=== PATIENT | female | born 1990 | race Caucasian/White ===

== ENCOUNTER 2017-10-03 23:27 | Emergency (ER) | payer OTHER ==
[2017-10-03 23:32] VITALS: BP 132/87; PULSE 75; TEMP 98.7; BMI 18.3
--- NOTE | 2017-10-03 23:53 | PDOC ---
History of Present Illness - General Chief Complaint: Chest Pain Stated Complaint: CHEST PAIN SINCE JUNE Time Seen by Provider: 10/03/17 23:32 - History of Present Illness Initial Comments: This 27-year-old woman with no significant past medical history presents with a few month history of substernal chest discomfort/pressure. In the last several days, the patient describes pain as becoming worse, with patient afraid that she has a life-threatening illness. Pain is worse while she is lying down, especially at night. There is no change the pain with movement of her arms . She has no cough/wheezing/shortness of breath. She denies injury or overuse of upper body muscles. She denies history of GERD or gastritis. Patient describes 10 year history of intermittent cigarette smoking (up to 6 cigarettes per day on some days and no smoking at all on others). She stopped smoking approximately a month ago because of her chest pain. CAD risk factors: Positive smoking; negative family history/HTN/DM/ hyperlipidemia/obesity Thromboembolic disease risk factors: Positive smoking; negative for estrogen use /recent immobility/malignancy/family history Past History - Past Medical History Allergies/Adverse Reactions: Allergies Allergy/AdvReac Type Severity Reaction Status Date / Time No Known Allergies Allergy Verified 12/03/12 09:23 Home Medications: Ambulatory Orders No Home Medications 0 dose .ROUTE UTDICT 12/03/12 Pantoprazole Sodium [Protonix -] 40 mg PO DAILY #10 tablet.ec 10/04/17 COPD: No Thyroid Disease: No - Surgical History Appendectomy: Yes - Suicide/Smoking/Psychosocial Hx Smoking Status: No Smoking History: Former smoker Have you smoked in the past 12 months: Yes Number of Cigarettes Smoked Daily: 0 Information on smoking cessation initiated: Yes 'Breaking Loose' booklet given: 10/03/17 Review of Systems - Review of Systems Able to Perform ROS?: Yes Comments:: 12 point review of systems is negative except for what is noted in the history of present illness *Physical Exam - Vital Signs Last Vital Signs Temp Pulse Resp BP Pulse Ox 98.7 F 75 14 132/87 100 10/03/17 23:29 10/03/17 23:29 10/03/17 23:29 10/03/17 23:29 10/03/17 23:29 - Physical Exam Comments: GENERAL: Adult female, anxious but in no acute distress, alert and oriented 3 HEAD: Normal with no signs of trauma. EYES: PERRLA, EOMI, sclera anicteric, conjunctiva clear. ENT: Ears normal, nares patent, oropharynx clear without exudates. Dry mucous membranes. NECK: Normal range of motion, supple without lymphadenopathy, JVD, or masses. LUNGS: Breath sounds equal, clear to auscultation bilaterally. No wheezes, and no crackles. HEART:Regular rate and rhythm, normal S1 and S2 without murmur, rub or gallop. ABDOMEN:.normal bowel sounds No guarding or rebound.No masses No distention. Mild right upper quadrant/epigastric tenderness which reproduces substernal pressure EXTREMITIES: Normal range of motion, no edema. No clubbing or cyanosis. No erythema, or tenderness. NEUROLOGICAL: Cranial nerves II through XII grossly intact. Normal speech. No focal neurological deficits. MUSCULOSKELETAL: Back non-tender to palpation, no CVA tenderness SKIN: Warm, Dry, normal turgor, no rashes or lesions noted. Medical Decision Making - Medical Decision Making 12-lead electrocardiogram is performed and interpreted by me: Normal sinus rhythm at 67 bpm; wave forms,, intervals and axis are all normal. There is no evidence of acute ST or T-wave abnormalities This otherwise healthy 27-year-old woman describes a few month history of substernal chest pressure. Exam is unremarkable and patient has few risk factors for coronary artery disease or pulmonary embolism. Since she had a worsening or reproduction of her substernal discomfort with palpation of her epigastric and right upper quadrant area, is possible that she has pain secondary to esophagitis/GERD. Patient will be given Protonix 40 mg now with small (#10) prescription for the near future. Meanwhile, the patient is reassured that it is unlikely that she is going to have serious cardiovascular event eminently (which patient is seriously concerned about). She should follow up with a general medical doctor and have full exam. The patient states that she does not have a general medical doctor and she will be given referral to Dr. Laurent for follow-up. *DC/Admit/Observation/Transfer Diagnosis at time of Disposition: Atypical chest pain - Discharge Dispostion Disposition: HOME Condition at time of disposition: Stable - Prescriptions Prescriptions: Pantoprazole Sodium [Protonix -] 40 mg PO DAILY #10 tablet.ec - Referrals Referrals: Jocelin Laurent MD [Staff Physician] - 1 week - Patient Instructions Printed Discharge Instructions: DI for Atypical Chest Pain Additional Instructions: Protonix 40 mg daily Use extra pillow when sleeping Avoid alcohol/chocolate/high acid foods prior to going to sleep Follow-up with within 5-7 days Return to ER if pain worsens - Post Discharge Activity
[2017-10-04] MEDS ORDERED: PANTOPRAZOLE 40 MG TABLET (FP) PO ONE (00:58)
[2017-10-04] MEDS ORDERED: PANTOPRAZOLE 40 MG TABLET (FP) ONE (01:02)
--- NOTE | 2017-10-06 10:23 | EKG ---
Test Reason : Blood Pressure : / mmHG Vent. Rate : 067 BPM Atrial Rate : 067 BPM P-R Int : 112 ms QRS Dur : 086 ms QT Int : 390 ms P-R-T Axes : 060 055 065 degrees QTc Int : 412 ms NORMAL SINUS RHYTHM NORMAL ECG NO PREVIOUS ECGS AVAILABLE Confirmed by MD CORNEL, ABDI ([id number]) on 10/06/2017 10:22:42 AM Referred By: MD MIDDLETON Confirmed By:ABDI UNGER MD
== END 2017-10-04 01:11 | disposition home or self-care (01) ==
LOC: FER 23:27
DX: R07.89 Other chest pain (principal)
CPT/HCPCS: 93005; 99281-25

== ENCOUNTER 2019-03-02 11:25 | Emergency (ER) | payer OTHER ==
--- NOTE | 2019-03-02 11:33 | PDOC ---
History of Present Illness - General Chief Complaint: Vaginal Sxs Stated Complaint: BURNING SENSATION Time Seen by Provider: 03/02/19 11:33 - History of Present Illness Initial Comments: 03/02/19 14:15 Chief complaint: Vaginal itching History of present illness: Patient had sexual intercourse using condoms last Thursday with a new partner, 2 days later developed some mild itching and burning in the vaginal area. Whitish discharge. No lesions. No abdominal pain. No dysuria Review of systems: As above. Otherwise negative. Of note is no oral sex was performed Past medical history: Chlamydia in the past, menses regular, LMP 1 week ago. Social/family history reviewed and noncontributory Physical exam: Alert and oriented no acute distress cooperative Afebrile, vital signs normal ENT clear Abdomen soft, nondistended, nontender Urinalysis clear negative GC chlamydia pending Impression: Unlikely that this is an STD, given the use of condoms. Most likely yeast infection or psychological Plan: Monistat, check culture results, [employer] referral. Fully ambulatory, no acute distress at discharge. Past History - Past Medical History Allergies/Adverse Reactions: Allergies Allergy/AdvReac Type Severity Reaction Status Date / Time No Known Allergies Allergy Verified 12/03/12 09:23 Home Medications: Ambulatory Orders No Home Medications 0 dose .ROUTE UTDICT 12/03/12 Miconazole Nitrate [Monistat 3] 1 appful VG DAILY #1 crm.pf.rey 03/02/19 COPD: No Thyroid Disease: No - Surgical History Appendectomy: Yes - Suicide/Smoking/Psychosocial Hx Smoking Status: No Smoking History: Former smoker Have you smoked in the past 12 months: Yes Number of Cigarettes Smoked Daily: 0 'Breaking Loose' booklet given: 10/03/17 *DC/Admit/Observation/Transfer Diagnosis at time of Disposition: Vaginitis Qualifiers: Chronicity: acute Qualified Code(s): N76.0 - Acute vaginitis - Discharge Dispostion Disposition: HOME Condition at time of disposition: Stable Decision to Admit order: No - Prescriptions Prescriptions: Miconazole Nitrate [Monistat 3] 1 appful VG DAILY #1 crm.pf.rey - Referrals Referrals: Jm Shannon [Primary Care Provider] - Liliam Walter MD [Staff Physician] - 1 week - Patient Instructions Printed Discharge Instructions: DI for Vaginal Yeast Infection - Post Discharge Activity
[2019-03-02 12:06] VITALS: BP 123/80; PULSE 74; TEMP 97.2; BMI 20.1
== END 2019-03-02 12:36 | disposition home or self-care (01) ==
LOC: FER 11:25
DX: N76.0 Acute vaginitis (principal); Z87.42 Personal history of other diseases of the female genital tract
CPT/HCPCS: 36415; 81003; 84703; 87389; 87491; 87591; 99282-25